=== PATIENT | female | born 2000 | race Caucasian/White ===

== ENCOUNTER 2020-06-14 11:19 | Emergency (ER) | payer OTHER ==
[~2020-06-14] VITALS: Ht 165.1 cm; Wt 70.5 kg
[2020-06-14 11:20] VITALS: BP 121/70
== END 2020-06-14 12:12 | disposition home or self-care (01) ==
LOC: EMS 11:30
DX: Z20.828 Contact with and (suspected) exposure to other viral communicable diseases (principal); F17.210 Nicotine dependence, cigarettes, uncomplicated
CPT/HCPCS: 99283; U0003

== ENCOUNTER 2022-12-11 00:57 | Inpatient (IN) | payer MEDICAID, OTHER ==
[~2022-12-11] VITALS: Ht 162.6 cm; Wt 81.9 kg
[2022-12-11] MEDS ORDERED: BACITRACIN 0.9 GM PACKET OINTMENT TP ONE (01:15)
[2022-12-11 01:33] LABS: BASOPHILS % (AUTO) 0.9 % (0.0-2.0); HEMATOCRIT 35.8 % (36-46); HEMOGLOBIN 12.2 g/dL (12.0-16.0); LYMPHOCYTES # (AUTO) 1.6 K/uL (1.0-4.8); LYMPHOCYTES % (AUTO) 20.2 % (22.0-44.0); MEAN CORPUSCULAR HEMOGLOBIN 28.7 pg (26.0-34.0); MEAN CORPUSCULAR VOLUME 85 fL (80-100); MONOCYTES # (AUTO) 0.5 K/uL (0.1-1.0); MONOCYTES % (AUTO) 6.6 % (2.0-9.0); NEUTROPHILS # (AUTO) 5.5 K/uL (1.8-7.7); NEUTROPHILS % (AUTO) 71.3 % (40.0-70.0); PLATELET COUNT (AUTO) 298 K/uL (150-450); RED BLOOD CELL COUNT(AUTO) 4.24 MIL/uL (4.00-5.20); RED CELL DISTRIBUTION WIDTH 13.8 % (11.5-14.5)
[2022-12-11 01:43] LABS: ANION GAP 10 mmol/L (8-16); CALCIUM, TOTAL 9.1 mg/dL (8.8-10.5); CARBON DIOXIDE 23 mmol/L (22-29); CHLORIDE 104 mmol/L (98-107); CREATININE 0.63 mg/dL (0.60-1.30); GLOMERULAR FILTR. RATE CALC > 60 mL/min (>60); GLUCOSE,RANDOM 85 mg/dL (70-110); POTASSIUM 3.3 mmol/L (3.5-5.1); SODIUM SERUM 137 mmol/L (136-145); UREA NITROGEN, BLOOD 11 mg/dL (7-18)
[2022-12-11 01:50] LABS: COVID AG,FIA SOURCE NASOPHARYNGEAL
[2022-12-11 02:02] LABS: APPEARANCE,URINE CLEAR (CLEAR); BILIRUBIN,URINE NEGATIVE (NEGATIVE); GLUCOSE, URINE (UA) NEGATIVE (NEGATIVE); KETONES,URINE 40-60 mg/dL (NEGATIVE); LEUKOCYTE ESTERASE ,URINE MODERATE (NEGATIVE); NITRATE,URINE NEGATIVE (NEGATIVE); OCCULT BLOOD,URINE LARGE (NEGATIVE); PROTEIN,URINE NEGATIVE (NEGATIVE); SPECIFIC GRAVITIY, URINE 1.011 (1.003-1.030); UROBILINOGEN,URINE <=1.0 mg/dL (<=1.0)
[2022-12-11 02:09] LABS: ALANINE AMINOTRANSFERASE 13 U/L (12-78); ALBUMIN 3.6 g/dL (3.4-5.0); ALKALINE PHOSPHATASE 60 U/L (46-116); ASPARTATE AMINOTRANSFERASE 21 U/L (15-37); BILIRUBIN,TOTAL 0.4 mg/dL (0.1-1.0); HCG,QUANTITATIVE 2788 mIU/mL (0-6)
[2022-12-11 02:24] LABS: RBC,URINE 51-100 /HPF (0-2)
[2022-12-11 02:25] LABS: AMPHET/METH SCREEN,URINE NEGATIVE (NEGATIVE); BACTERIA,URINE Few /HPF (None Seen); BARBITURATE SCREEN, URINE NEGATIVE (NEGATIVE); BENZODIAZEPINES SCREEN,URINE NEGATIVE (NEGATIVE); CANNABINOID SCREEN,URINE POSITIVE (NEGATIVE); COCAINE SCREEN,URINE NEGATIVE (NEGATIVE); METHADONE SCREEN, URINE NEGATIVE (NEGATIVE); OPIATE SCREEN,URINE NEGATIVE (NEGATIVE); PHENCYCLIDINE SCREEN,URINE NEGATIVE (NEGATIVE); SQUAMOUS EPITHELIAL CELL,UR Few /LPF (None Seen)
[2022-12-11] MEDS ORDERED: POTASSIUM CHLORIDE 10% 40 MEQ/30 ML LIQUID UDCUP PO ONE (03:00)
[2022-12-11] MEDS ORDERED: INFLUENZA VIRUS VACCINE QVS 2022-23 (6MO+)/PF 60 MCG/0.5 ML SYRINGE IM. ONE (06:15)
[2022-12-11 06:16] VITALS: BP 104/61
[2022-12-11] MEDS ORDERED: NICOTINE POLACRILEX 2 MG LOZENGE PO PRN (09:00)
[2022-12-11 09:28] VITALS: BP 110/60
[2022-12-11] MEDS: SERTRALINE HCL 50 MG TABLET PO SCH (11:35)
[2022-12-11] MEDS: OLANZapine 5 MG TABLET PO SCH (11:35)
[2022-12-11] MEDS: HydrOXYzine PAMOATE 25 MG CAPSULE PO SCH ×2 (11:36→16:49)
[2022-12-11 20:23] VITALS: BP 104/62
[2022-12-12 08:48] VITALS: BP 101/63
[2022-12-12] MEDS: SERTRALINE HCL 50 MG TABLET PO SCH (09:01)
[2022-12-12] MEDS: OLANZapine 5 MG TABLET PO SCH (09:01)
[2022-12-12] MEDS: HydrOXYzine PAMOATE 25 MG CAPSULE PO SCH ×2 (09:01→16:47)
[2022-12-12 20:22] VITALS: BP 125/83
[2022-12-13 08:36] VITALS: BP 132/76
[2022-12-13] MEDS: SERTRALINE HCL 50 MG TABLET PO SCH (09:15)
[2022-12-13] MEDS: OLANZapine 5 MG TABLET PO SCH (09:16)
[2022-12-13] MEDS: HydrOXYzine PAMOATE 25 MG CAPSULE PO SCH ×2 (09:18→16:29)
[2022-12-13 20:46] VITALS: BP 131/94
[2022-12-14 08:20] VITALS: BP 107/67
[2022-12-14 08:38] LABS: POTASSIUM 4.3 mmol/L (3.5-5.1)
[2022-12-14] MEDS: HydrOXYzine PAMOATE 25 MG CAPSULE PO SCH (08:56)
[2022-12-14] MEDS: SERTRALINE HCL 50 MG TABLET PO SCH (08:56)
[2022-12-14] MEDS: OLANZapine 5 MG TABLET PO SCH (08:56)
[2022-12-15] MEDS ORDERED: SERT-439 PO (17:57)
[2022-12-15] MEDS ORDERED: OLAN5TAB52 PO (17:57)
[2022-12-15] MEDS ORDERED: HYDR-4808 PO (17:57)
== END 2022-12-14 15:15 | disposition home or self-care (01) | DRG 754 ==
LOC: EMS 01:06 → B2S 04:07
PROVIDERS: ADMIT Psychiatry & Neurology Child & Adolescent Psychiatry; ATTEND Psychiatry & Neurology Child & Adolescent Psychiatry
DX: F32.9 Major depressive disorder, single episode, unspecified (principal); R45.851 Suicidal ideations; F22 Delusional disorders; E66.9 Obesity, unspecified; E87.6 Hypokalemia; Z68.31 Body mass index [BMI] 31.0-31.9, adult; G47.00 Insomnia, unspecified; Z20.822 Contact with and (suspected) exposure to COVID-19; F41.9 Anxiety disorder, unspecified; F43.10 Post-traumatic stress disorder, unspecified
CPT/HCPCS: 80053; 80307; 81001; 84132; 84702; 85025; 86901; 99285; G0480

== ENCOUNTER 2025-02-05 15:47 | Emergency (ER) | payer MEDICAID, OTHER ==
[~2025-02-05] VITALS: Ht 160 cm; Wt 130.0 kg
[~2025-02-05 15:47] MED LIST: HYDR-4808 PO; OLAN5TAB52 PO; SERT-439 PO
[2025-02-05 16:02] VITALS: BP 122/86; PULSE 116; RESP 18; TEMP 97.9; O2SAT 99
[2025-02-05 16:34] LABS: BASOPHILS % (AUTO) 0.6 % (0.0-2.0); EOSINOPHILS % (AUTO) 3.5 % (1.0-6.0); HEMATOCRIT 39.8 % (36-46); HEMOGLOBIN 13.2 g/dL (12.0-16.0); LYMPHOCYTES # (AUTO) 1.5 K/uL (1.0-4.8); LYMPHOCYTES % (AUTO) 24.9 % (22.0-44.0); MEAN CORPUSCULAR HGB CONC 33.2 G/dL (31.0-37.0); MEAN CORPUSCULAR VOLUME 84 fL (80-100); MONOCYTES # (AUTO) 0.4 K/uL (0.1-1.0); MONOCYTES % (AUTO) 7.4 % (2.0-9.0); NEUTROPHILS # (AUTO) 3.8 K/uL (1.8-7.7); NEUTROPHILS % (AUTO) 63.6 % (40.0-70.0); PLATELET COUNT (AUTO) 253 K/uL (150-450); RED BLOOD CELL COUNT(AUTO) 4.72 MIL/uL (4.00-5.20); RED CELL DISTRIBUTION WIDTH 14.2 % (11.5-14.5); WHITE BLOOD COUNT (AUTO) 5.9 K/uL (4.5-11.0)
[2025-02-05 16:43] LABS: ANION GAP 8 mmol/L (8-16); CALCIUM, TOTAL 9.1 mg/dL (8.8-10.5); CARBON DIOXIDE 27 mmol/L (22-29); CHLORIDE 102 mmol/L (98-107); CREATININE 0.94 mg/dL (0.60-1.30); GLOMERULAR FILTR. RATE CALC > 60 mL/min (>60); GLUCOSE,RANDOM 101 mg/dL (70-110); POTASSIUM 3.4 mmol/L (3.5-5.1); SODIUM SERUM 137 mmol/L (136-145); UREA NITROGEN, BLOOD 9 mg/dL (7-18)
[2025-02-05] MEDS ORDERED: BUSP10TA23 PO (18:03)
[2025-02-05] MEDS ORDERED: VENL150C5 PO (18:03)
[2025-02-05] MEDS ORDERED: RISP2TAB45 PO (18:03)
[2025-02-05] MEDS ORDERED: RISP3TAB35 PO (18:03)
[2025-02-05] MEDS: ChlordiazePOXIDE HCL 25 MG CAPSULE PO ONE (18:30)
== END 2025-02-05 18:59 | disposition home or self-care (01) ==
LOC: EMS 15:47
DX: F10.10 Alcohol abuse, uncomplicated (principal); F41.9 Anxiety disorder, unspecified; F32.A Depression, unspecified; F43.10 Post-traumatic stress disorder, unspecified; F17.210 Nicotine dependence, cigarettes, uncomplicated; Z79.899 Other long term (current) drug therapy; Y90.9 Presence of alcohol in blood, level not specified
CPT/HCPCS: 99283; 80048; 84703; 85025; 36415; G0480